=== PATIENT | female | born 1995 | race African-American/Black ===

== ENCOUNTER → 2023-07-12 | Emergency (ER) | payer OTHER ==
[2023-07-12 18:41] LABS: Urine Bacteria None Seen /HPF (<20); Urine Bilirubin NEGATIVE (Negative); Urine Blood 2+ (Negative); Urine Clarity Turbid (Clear); Urine Color Yellow (Yellow); Urine Glucose NEGATIVE (Negative); Urine Mucus 2+ /HPF (None Seen); Urine Protein TRACE (Negative); Urine RBC <5 /HPF (None Seen); Urine Urobilinogen 1+ (Normal)
[2023-07-12 18:53] LABS: Absolute Lymphocytes (CBC) 1.2 K/uL (0.7-4.9); Hematocrit 34.1 % (36.0-45.0); Lymphocytes % 16.5 % (15.3-44.8); MCV 75.7 fL (80-100); MPV 8.9 fL (7.6-11.3); Platelets 192 thou/uL (152-406); RBC Red Blood Cell Count 4.51 M/uL (3.86-4.86)
[2023-07-12 19:10] LABS: Potassium 3.1 mEq/L (3.5-5.1)
--- NOTE | 2023-07-12 20:15 | RAD REPORT ---
EXAM DESCRIPTION: US - Transvaginal OB - 07/12/2023 6:50 pm CLINICAL HISTORY: VAGINAL BLEEDING COMPARISON: No comparisons TECHNIQUE: Sonographic grayscale and color flow images of a first-trimester were obtained through transvaginal approach. FINDINGS: A single live intrauterine is identified. [place]-rump length measures 16 millimeters, corresponding to gestational age of 8 weeks, 0 days. No yolk sac is visualized. Prominence of the anterior uterine wall, may relate to myometrial contraction or an occult fibroid. Maternal ovaries are not visualized bilaterally due to over shadowing bowel. No free fluid. IMPRESSION: 1. Single live intrauterine . 2. Calculated gestational age: 8 weeks, 0 days. Estimated due date by ultrasound: 02/21/2024. 3. Prominence of the anterior uterine wall, may relate to myometrial contraction or an occult fibroid .
--- NOTE | 2023-07-12 20:19 | EDPHYS ---
Physician Documentation [facility] Name: Ani Finn Age: 28 yrs Sex: Female : 1995 Arrival Date: 07/12/2023 Time: 18:04 Bed 8 Private MD: ED Physician William Wagoner HPI: 07/12 18:50 This 28 yrs old Black Female presents to ER via Ambulatory with complaints of Vaginal rt Bleeding, + Preg <12wks. 18:50 Patient is a G4, P1 currently at 7 weeks gestation who presents to the ED with vaginal rt bleeding described as a brown discharge, less than a period. Denies any abdominal cramping. Denies other acute complaints, symptoms are mild in severity, no other aggravating or alleviating factors.. OFFICE ASSISTANCE: 18:20 4, Full Term 2, Living 2, Verified ph Historical: - Allergies: 18:19 No Known Allergies; ph - PMHx: 18:19 Heart murmur; ph - PSHx: 18:19 section; ph - Immunization history:: Adult Immunizations up to date. - Social history:: Smoking status: Patient denies any tobacco usage or history of. - Family history:: not pertinent. ROS: 18:50 Constitutional: Negative for fever, chills, and weight loss, Cardiovascular: Negative rt for chest pain, palpitations, and edema, Respiratory: Negative for shortness of breath, cough, wheezing, and pleuritic chest pain, Abdomen/GI: Negative for abdominal pain, nausea, vomiting, diarrhea, and constipation, MS/Extremity: Negative for injury and deformity, Skin: Negative for injury, rash, and discoloration, Neuro: Negative for headache, weakness, numbness, tingling, and seizure, Psych: Negative for depression, anxiety, suicide ideation, homicidal ideation, and hallucinations, 18:50 : Positive for vaginal bleeding, Negative for urinary symptoms, Exam: 18:50 Constitutional: This is a well developed, well nourished patient who is awake, alert, rt and in no acute distress. Head/Face: Normocephalic, atraumatic. Chest/axilla: Normal chest wall appearance and motion. Nontender with no deformity. No lesions are appreciated. Cardiovascular: Regular rate and rhythm with a normal S1 and S2. No gallops, murmurs, or rubs. Normal PMI, no JVD. No pulse deficits. Respiratory: Lungs have equal breath sounds bilaterally, clear to auscultation and percussion. No rales, rhonchi or wheezes noted. No increased work of breathing, no retractions or nasal flaring. Abdomen/GI: Soft, non-tender, with normal bowel sounds. No distension or tympany. No guarding or rebound. No evidence of tenderness throughout. Skin: Warm, dry with normal turgor. Normal color with no rashes, no lesions, and no evidence of cellulitis. MS/ Extremity: Pulses equal, no cyanosis. Neurovascular intact. Full, normal range of motion. Neuro: Awake and alert, GCS 15, oriented to person, place, time, and situation. Cranial nerves II-XII grossly intact. Motor strength 5/5 in all extremities. Sensory grossly intact. Cerebellar exam normal. Normal gait. Psych: Awake, alert, with orientation to person, place and time. Behavior, mood, and affect are within normal limits. Vital Signs: 18:17 BP 126 / 77; Pulse 78; Resp 18; Temp 98.8; Pulse Ox 100% on R/A; Weight 45.36 kg; ph Height 4 ft. 6 in. ; 19:10 BP 126 / 77; Pulse 73; Resp 18; Pulse Ox 100% ; vc1 20:19 BP 107 / 61; Pulse 78; Resp 18; Pulse Ox 100% ; vc1 18:17 Body Mass Index 23.24 (45.36 kg, 139.7 cm) ph MDM: 18:12 Patient medically screened. rt 20:19 Differential diagnosis: Threatened AB, completed AB, ectopic. Data reviewed: vital rt signs, nurses notes, lab test result(s), radiologic studies. Counseling: I had a detailed discussion with the patient and/or guardian regarding the historical points, exam findings, and any diagnostic results supporting the discharge/admit diagnosis, lab results, radiology results, the need for outpatient follow up. 07/12 18:18 Order name: Abo/rh Typing; Complete Time: 19:16 rt 07/12 18:18 Order name: Basic Metabolic Panel; Complete Time: :16 rt 07/12 18:18 Order name: CBC with Diff; Complete Time: :16 rt 07/12 18:18 Order name: Quantitative Hcg; Complete Time: 19:16 rt 07/12 18:18 Order name: Urinalysis w/ reflexes; Complete Time: 19:16 rt 07/12 18:18 Order name: US Transvaginal Ob; Complete Time: 20:16 rt 07/12 18:18 Order name: IV Saline Lock; Complete Time: 18:26 rt 07/12 18:18 Order name: Labs collected and sent; Complete Time: 18:26 rt 07/12 18:18 Order name: NPO; Complete Time: 18:18 rt Administered Medications: No medications were administered Disposition Summary: 07/12/23 20:19 Discharge Ordered Notes: Location: Home rt Problem: new rt Symptoms: are unchanged rt Condition: Stable rt Diagnosis - Threatened rt Followup: rt - With: Private Physician - When: 2 - 3 days - Reason: Discharge Instructions: - Discharge Summary Sheet rt - Threatened Miscarriage rt Forms: - Medication Reconciliation Form rt - Thank You Letter rt - Antibiotic Education rt - Prescription Opioid Use rt - Patient Portal Instructions rt - Leadership Thank You Letter rt Signatures: Dispatcher [employer] Meaghan Kam, RN RN Eneida Mckeon RN RN mb9 William Wagoner MD MD rt
--- NOTE | 2023-07-12 20:19 | ER ---
Nurse's Notes [facility] Name: Ani Finn Age: 28 yrs Sex: Female : 1995 Arrival Date: 07/12/2023 Time: 18:04 Bed 8 Private MD: Diagnosis: Threatened Presentation: 07/12 18:17 Chief complaint: Patient states: Dark brown vaginal bleeding when wiping after using ph restroom that started today, denies cramping, states that she is 7 weeks 5 days gestation. Coronavirus screen: Vaccine status: Patient reports being unvaccinated. Ebola Screen: No symptoms or risks identified at this time. Initial Sepsis Screen: Does the patient meet any 2 criteria? No. Patient's initial sepsis screen is negative. Does the patient have a suspected source of infection? No. Patient's initial sepsis screen is negative. Risk Assessment: Do you want to hurt yourself or someone else? Patient reports no desire to harm self or others. Onset of symptoms was July 12, 2023. 18:17 Method Of Arrival: Ambulatory 18:17 Acuity: MOOK 3 ph SECURITY AUDITOR: 18:20 4, Full Term 2, Living 2, Verified ph Historical: - Allergies: 18:19 No Known Allergies; ph - PMHx: 18:19 Heart murmur; ph - PSHx: 18:19 section; ph - Immunization history:: Adult Immunizations up to date. - Social history:: Smoking status: Patient denies any tobacco usage or history of. - Family history:: not pertinent. Screenin:11 [facility] ED Fall Risk Assessment (Adult) History of falling in the last 3 months, mb9 including since admission No falls in past 3 months (0 pts) Confusion or Disorientation No (0 pts) Intoxicated or Sedated No (0 pts) Impaired Gait No (0 pts) Mobility Assist Device Used No (0 pt) Altered Elimination No (0 pt) Score/Fall Risk Level 0 - 2 = Low Risk Oriented to surroundings, Maintained a safe environment, Educated pt \T\ family on fall prevention, incl call for assistance when getting out of bed. Abuse screen: Denies threats or abuse. Nutritional screening: No deficits noted. Tuberculosis screening: No symptoms or risk factors identified. Assessment: 18:27 General: Appears in no apparent distress. Behavior is calm, cooperative. Pain: Denies mb9 pain. Neuro: Zarate Agitation-Sedation Scale (RASS): 0 - Alert and Calm Level of Consciousness is awake, alert, obeys commands, Oriented to person, place, time, situation, Appropriate for age. Cardiovascular: Patient's skin is warm and dry. Respiratory: Airway is patent Respiratory effort is even, unlabored, Respiratory pattern is regular, symmetrical. GI: Abdomen is flat, non-distended, Bowel sounds present X 4 quads. Abd is soft and non tender X 4 quads. : Reports vaginal bleeding that is brown, light flow. EENT: No signs and/or symptoms were reported regarding the EENT system. Derm: Skin is pink, warm \T\ dry. Musculoskeletal: Range of motion: intact in all extremities. 19:10 Reassessment: Pt back from ultrasound, requesting crackers. vc1 20:00 Reassessment: No changes from previously documented assessment. Patient and/or family vc1 updated on plan of care and expected duration. Pain level reassessed. Patient is alert, oriented x 3, equal unlabored respirations, skin warm/dry/pink. Vital Signs: 18:17 BP 126 / 77; Pulse 78; Resp 18; Temp 98.8; Pulse Ox 100% on R/A; Weight 45.36 kg; ph Height 4 ft. 6 in. ; 19:10 BP 126 / 77; Pulse 73; Resp 18; Pulse Ox 100% ; vc1 20:19 BP 107 / 61; Pulse 78; Resp 18; Pulse Ox 100% ; vc1 18:17 Body Mass Index 23.24 (45.36 kg, 139.7 cm) ph ED Course: 18:07 Patient arrived in ED. mr 18:08 William Wagoner MD is Attending Physician. rt 18:11 Eneida Waddell RN is Primary Nurse. mb9 18:11 Arm band placed on. mb9 18:11 Placed in gown. Bed in low position. Call light in reach. Side rails up X 1. Client mb9 placed on continuous cardiac and pulse oximetry monitoring. NIBP monitoring applied. 18:19 Triage completed. ph 18:26 Abo/rh Typing Sent. mb9 18:26 Basic Metabolic Panel Sent. mb9 18:26 CBC with Diff Sent. mb9 18:26 Quantitative Hcg Sent. mb9 18:26 Urinalysis w/ reflexes Sent. mb9 18:26 Inserted saline lock: 20 gauge in right antecubital area, using aseptic technique. mb9 18:31 No provider procedures requiring assistance completed. mb9 18:52 Transvaginal Ob In Process Unspecified. EDMS 19:04 Report given to BRIGIDA Doran. mb9 20:21 Provided Education on: f/u with OB. vc1 20:21 IV discontinued, intact, bleeding controlled, No redness/swelling at site. Pressure vc1 dressing applied. Administered Medications: No medications were administered Medication: 18:27 VIS not applicable for this client. mb9 Outcome: 20:19 Discharge ordered by . rt 20:20 Discharged to home ambulatory, vc1 20:20 Condition: good 20:20 Discharge instructions given to patient, Instructed on discharge instructions, follow up and referral plans. Demonstrated understanding of instructions, follow-up care, 20:37 Patient left the ED. vc1 Signatures: Dispatcher [employer] [facility] Eneida Romo, Reg Reg Meaghan Ruiz, BRIGIDA RN ph CalcoteAndreea RN RN vc1 Eneida Waddell, RN RN William Fontenot MD MD rt
[2023-07-12 20:51] VITALS: BP 107/61; TEMP 98.8; O2SAT 100
== END ==
LOC: ER 18:04
DX: O20.0 Threatened abortion (principal); Z3A.01 Less than 8 weeks gestation of pregnancy
CPT/HCPCS: 36415; 76817; 80048; 81001; 84702; 85025; 86900; 86901